=== PATIENT | female | born 1955 | race Asian ===

== ENCOUNTER 2019-10-09 09:18 | Outpatient (CLI) | payer MEDICARE ==
[2019-10-09 11:25] LABS: BASOPHILS # (AUTO) 0.1 10^3/uL (0.0-0.1); BASOPHILS % (AUTO) 1.1 %; EOSINOPHILS # (AUTO) 0.1 10^3/uL (0.0-0.7); HGB - HEMOGLOBIN 12.6 g/dL (12.0-16.0); LYMPHOCYTES # (AUTO) 1.6 10^3/uL (1.5-3.5); LYMPHOCYTES % (AUTO) 34.9 %; MEAN CORPUSCULAR HEMOGLOBIN 31.1 pg (27.0-31.0); MEAN CORPUSCULAR HGB CONC 31.5 g/dL (32.0-36.0); MEAN CORPUSCULAR VOLUME 98.8 fL (81.0-99.0); MEAN PLATELET VOLUME 9.9 fL (7.9-10.8); MONOCYTES # (AUTO) 0.4 10^3/uL (0.0-1.0); MONOCYTES % (AUTO) 7.4 %; NEUTROPHILS # (AUTO) 2.5 10^3/uL (1.5-6.6); NEUTROPHILS % (AUTO) 53.4 %; PLT - PLATELET COUNT 307 10^3/uL (130-450); RED BLOOD COUNT 4.05 10^6/uL (4.20-5.40); RED CELL DISTRIBUTION WIDTH 12.7 % (12.0-15.0); WHITE BLOOD COUNT 4.7 x10^3/uL (4.8-10.8)
[2019-10-09 11:59] LABS: ALBUMIN 4.8 g/dL (3.2-5.5); ALBUMIN/GLOBULIN RATIO 1.5 (1.0-2.2); ALKALINE PHOSPHATASE 43 IU/L (42-121); ALT ALANINE AMINOTRANSFERASE 49 IU/L (10-60); AST ASPARTATE AMINOTRANSFERASE 33 IU/L (10-42); BILIRUBIN,TOTAL 0.5 mg/dL (0.2-1.0); BUN - BLOOD UREA NITROGEN 19 mg/dL (6-20); CALCIUM 9.6 mg/dL (8.5-10.3); CARBON DIOXIDE - CO2 29 mmol/L (21-32); CHLORIDE 101 mmol/L (101-111); CHOL/HDL RATIO 3.2 (<4.4); CHOLESTEROL 249 mg/dL; CREATININE 0.8 mg/dL (0.4-1.0); GLUCOSE 101 mg/dL (70-100); HDL CHOLESTEROL 79 mg/dL; LDL CHOLESTEROL,CALCULATED 133 mg/dL; LDL/HDL RATIO 1.7 (<4.4); SODIUM 140 mmol/L (135-145); VLDL CHOLESTEROL 37 mg/dL
[2019-10-09 12:10] LABS: FREE T3 2.49 pg/mL (2.5-3.9)
[2019-10-09 12:11] LABS: FREE T4 (FREE THYROXINE) 1.29 ng/dL (0.58-1.64); THYROID STIMULATING HORMONE 6.9 uIU/mL (0.34-5.60)
[2019-10-09 12:16] LABS: HB2 TOTAL 13.4 g/dL; HEMOGLOBIN A1C 0.59 g/dL; HEMOGLOBIN A1C % 6.2 % (4.6-6.2)
== END 2019-10-09 23:59 | disposition home or self-care (01) ==
LOC: LAB.WCP 09:18
PROVIDERS: ATTEND Family Medicine
DX: E11.51 Type 2 diabetes mellitus with diabetic peripheral angiopathy without gangrene (principal); E78.5 Hyperlipidemia, unspecified; E03.9 Hypothyroidism, unspecified; I10 Essential (primary) hypertension
CPT/HCPCS: 36415; 80053; 80061; 83036; 83721; 84439; 84443; 84481; 85025

== ENCOUNTER 2020-01-07 08:00 | Outpatient (CLI) | payer MEDICARE ==
[2020-01-07 18:40] LABS: THYROID STIMULATING HORMONE 6.84 uIU/mL (0.34-5.60)
[2020-01-07 18:42] LABS: FREE T4 (FREE THYROXINE) 1.08 ng/dL (0.58-1.64)
[2020-01-07 18:43] LABS: FREE T3 2.8 pg/mL (2.5-3.9)
== END 2020-01-07 23:59 | disposition home or self-care (01) ==
LOC: LAB.WCP 08:00
PROVIDERS: ATTEND Family Medicine
DX: E03.9 Hypothyroidism, unspecified (principal)
CPT/HCPCS: 36415; 84439; 84443; 84481

== ENCOUNTER 2020-04-08 08:00 | Outpatient (CLI) | payer MEDICARE ==
[2020-04-08 18:31] LABS: CALCIUM 9.1 mg/dL (8.5-10.3); CREATININE 0.8 mg/dL (0.4-1.0)
[2020-04-08 20:12] LABS: HEMOGLOBIN A1c% 6.3 % (4.27-6.07)
== END 2020-04-08 23:59 | disposition home or self-care (01) ==
LOC: LAB.WCP 08:00
PROVIDERS: ATTEND Family Medicine
DX: I10 Essential (primary) hypertension (principal); E11.59 Type 2 diabetes mellitus with other circulatory complications
CPT/HCPCS: 36415; 80048; 83036

== ENCOUNTER 2020-09-28 08:00 | Outpatient (CLI) | payer MEDICARE ==
[2020-09-28 19:17] LABS: CHOL/HDL RATIO 3.8 (<4.4); CHOLESTEROL 270 mg/dL; HDL CHOLESTEROL 71 mg/dL; LDL CHOLESTEROL,CALCULATED 162 mg/dL; LDL/HDL RATIO 2.3 (<4.4); TRIGLYCERIDES 185 mg/dL; VLDL CHOLESTEROL 37 mg/dL
[2020-09-28 19:23] LABS: FREE T3 3.37 pg/mL (2.5-3.9); THYROID STIMULATING HORMONE 6.39 uIU/mL (0.34-5.60)
[2020-09-28 19:24] LABS: CREATININE,URINE 169.3 mg/dL; MICROALBUM/CREATININE RATIO,UR 3.5 ug/mg (<30.0); MICROALBUMIN,URINE 0.6 mg/dL (0-300.0)
[2020-09-28 19:27] LABS: FREE T4 (FREE THYROXINE) 1.11 ng/dL (0.58-1.64)
[2020-09-28 20:36] LABS: ESTIMATED AVERAGE GLUCOSE 137 mg/dL (70-100); HEMOGLOBIN A1c% 6.4 % (4.27-6.07)
== END 2020-09-28 23:59 | disposition home or self-care (01) ==
LOC: LAB.WCP 08:00
PROVIDERS: ATTEND Family Medicine
DX: E03.9 Hypothyroidism, unspecified (principal); M25.462 Effusion, left knee; E78.5 Hyperlipidemia, unspecified; I10 Essential (primary) hypertension; E11.59 Type 2 diabetes mellitus with other circulatory complications
CPT/HCPCS: 36415; 80061; 82043; 82570; 83036; 83721; 84439; 84443; 84481

== ENCOUNTER 2021-04-08 09:39 | Outpatient (CLI) | payer MEDICARE, OTHER ==
[2021-04-08 13:24] LABS: CREATININE,URINE 188.3 mg/dL; MICROALBUM/CREATININE RATIO,UR 10.1 ug/mg (<30.0); MICROALBUMIN,URINE 1.9 mg/dL (0-300.0)
[2021-04-08 14:41] LABS: BASOPHILS % (AUTO) 0.9 %; EOSINOPHILS # (AUTO) 0.2 10^3/uL (0.0-0.7); EOSINOPHILS % (AUTO) 3.4 %; HCT - HEMATOCRIT 40.7 % (37.0-47.0); HGB - HEMOGLOBIN 13.3 g/dL (12.0-16.0); LYMPHOCYTES # (AUTO) 1.7 10^3/uL (1.5-3.5); LYMPHOCYTES % (AUTO) 37.2 %; MEAN CORPUSCULAR HGB CONC 32.7 g/dL (32.0-36.0); MEAN CORPUSCULAR VOLUME 98.1 fL (81.0-99.0); MONOCYTES # (AUTO) 0.4 10^3/uL (0.0-1.0); MONOCYTES % (AUTO) 8.8 %; NEUTROPHILS # (AUTO) 2.3 10^3/uL (1.5-6.6); NEUTROPHILS % (AUTO) 49.5 %; PLT - PLATELET COUNT 307 10^3/uL (130-450); RED BLOOD COUNT 4.15 10^6/uL (4.20-5.40); RED CELL DISTRIBUTION WIDTH 13.1 % (12.0-15.0); WHITE BLOOD COUNT 4.7 x10^3/uL (4.8-10.8)
[2021-04-08 15:01] LABS: FREE T4 (FREE THYROXINE) 1.04 ng/dL (0.58-1.64); THYROID STIMULATING HORMONE 6.5 uIU/mL (0.34-5.60)
[2021-04-08 15:02] LABS: FREE T3 2.74 pg/mL (2.5-3.9)
[2021-04-08 15:11] LABS: ALBUMIN 4.2 g/dL (3.2-5.5); ALBUMIN/GLOBULIN RATIO 1.2 (1.0-2.2); ALKALINE PHOSPHATASE 34 IU/L (42-121); ALT ALANINE AMINOTRANSFERASE 28 IU/L (10-60); AST ASPARTATE AMINOTRANSFERASE 23 IU/L (10-42); BILIRUBIN,TOTAL 0.7 mg/dL (0.2-1.0); BUN - BLOOD UREA NITROGEN 18 mg/dL (6-20); CARBON DIOXIDE - CO2 29 mmol/L (21-32); CHLORIDE 100 mmol/L (101-111); CHOL/HDL RATIO 5.1 (<4.4); CHOLESTEROL 386 mg/dL; CREATININE 0.9 mg/dL (0.4-1.0); GFR - MDRD 63 (>89); GLUCOSE 95 mg/dL (70-100); HDL CHOLESTEROL 76 mg/dL; LDL CHOLESTEROL,CALCULATED 273 mg/dL; LDL/HDL RATIO 3.6 (<4.4); POTASSIUM 4.1 mmol/L (3.5-5.0); SODIUM 139 mmol/L (135-145); TOTAL PROTEIN 7.8 g/dL (6.7-8.2); TRIGLYCERIDES 186 mg/dL; VLDL CHOLESTEROL 37 mg/dL
[2021-04-08 17:22] LABS: ESTIMATED AVERAGE GLUCOSE 137 mg/dL (70-100); HEMOGLOBIN A1c% 6.4 % (4.27-6.07)
== END 2021-04-08 09:40 | disposition home or self-care (01) ==
LOC: LAB.N 09:39
PROVIDERS: ATTEND Family Medicine
DX: M60.9 Myositis, unspecified (principal); I10 Essential (primary) hypertension; E03.9 Hypothyroidism, unspecified; E11.59 Type 2 diabetes mellitus with other circulatory complications
CPT/HCPCS: 36415; 80053; 80061; 82043; 82570; 83036; 83721; 84439; 84443; 84481; 85025

== ENCOUNTER 2021-09-09 08:55 | Outpatient (CLI) | payer MEDICARE, OTHER ==
[2021-09-09 12:32] LABS: CALCIUM 9.5 mg/dL (8.5-10.3); CREATININE 0.9 mg/dL (0.4-1.0); POTASSIUM 4.9 mmol/L (3.5-5.0)
[2021-09-09 12:35] LABS: CREATININE,URINE 124.1 mg/dL; MICROALBUM/CREATININE RATIO,UR 8.9 ug/mg (<30.0); MICROALBUMIN,URINE 1.1 mg/dL (0-300.0)
[2021-09-09 12:49] LABS: THYROID STIMULATING HORMONE 1.55 uIU/mL (0.34-5.60)
[2021-09-09 12:52] LABS: FREE T3 3.66 pg/mL (2.5-3.9)
[2021-09-09 12:53] LABS: FREE T4 (FREE THYROXINE) 1.51 ng/dL (0.58-1.64)
[2021-09-09 13:48] LABS: ESTIMATED AVERAGE GLUCOSE 134 mg/dL (70-100); HEMOGLOBIN A1c% 6.3 % (4.27-6.07)
== END 2021-09-09 08:56 | disposition home or self-care (01) ==
LOC: LAB.N 08:55
PROVIDERS: ATTEND Family Medicine
DX: I10 Essential (primary) hypertension (principal); E03.9 Hypothyroidism, unspecified; E78.5 Hyperlipidemia, unspecified; E11.59 Type 2 diabetes mellitus with other circulatory complications
CPT/HCPCS: 36415; 80048; 82043; 82570; 83036; 84439; 84443; 84481

== ENCOUNTER 2022-05-12 07:39 | Outpatient (CLI) | payer MEDICARE, OTHER ==
[2022-05-12 12:18] LABS: BASOPHILS % (AUTO) 0.7 %; EOSINOPHILS # (AUTO) 0.2 10^3/uL (0.0-0.7); HCT - HEMATOCRIT 43.2 % (37.0-47.0); HGB - HEMOGLOBIN 13.3 g/dL (12.0-16.0); LYMPHOCYTES # (AUTO) 1.9 10^3/uL (1.5-3.5); LYMPHOCYTES % (AUTO) 34.1 %; MEAN CORPUSCULAR HEMOGLOBIN 29.8 pg (27.0-31.0); MEAN CORPUSCULAR HGB CONC 30.8 g/dL (32.0-36.0); MEAN CORPUSCULAR VOLUME 96.6 fL (81.0-99.0); MEAN PLATELET VOLUME 10.3 fL (7.9-10.8); MONOCYTES # (AUTO) 0.5 10^3/uL (0.0-1.0); MONOCYTES % (AUTO) 8.5 %; NEUTROPHILS # (AUTO) 2.9 10^3/uL (1.5-6.6); NEUTROPHILS % (AUTO) 52.3 %; PLT - PLATELET COUNT 331 10^3/uL (130-450); RED BLOOD COUNT 4.47 10^6/uL (4.20-5.40); RED CELL DISTRIBUTION WIDTH 12.6 % (12.0-15.0); WHITE BLOOD COUNT 5.5 x10^3/uL (4.8-10.8)
[2022-05-12 13:31] LABS: THYROID STIMULATING HORMONE 2.11 uIU/mL (0.34-5.60)
[2022-05-12 13:36] LABS: ALBUMIN 4.2 g/dL (3.2-5.5); ALBUMIN/GLOBULIN RATIO 1.2 (1.0-2.2); ALKALINE PHOSPHATASE 47 IU/L (42-121); ALT ALANINE AMINOTRANSFERASE 34 IU/L (10-60); AST ASPARTATE AMINOTRANSFERASE 25 IU/L (10-42); BILIRUBIN,TOTAL 0.7 mg/dL (0.2-1.0); BUN - BLOOD UREA NITROGEN 17 mg/dL (6-20); CALCIUM 8.9 mg/dL (8.5-10.3); CARBON DIOXIDE - CO2 29 mmol/L (21-32); CHLORIDE 105 mmol/L (101-111); CHOL/HDL RATIO 2.7 (<4.4); CHOLESTEROL 182 mg/dL; CREATININE 0.8 mg/dL (0.4-1.0); GFR - MDRD 72 (>89); GLUCOSE 87 mg/dL (70-100); HDL CHOLESTEROL 68 mg/dL; LDL CHOLESTEROL,CALCULATED 84 mg/dL; LDL/HDL RATIO 1.2 (<4.4); POTASSIUM 3.7 mmol/L (3.5-5.0); SODIUM 140 mmol/L (135-145); TOTAL PROTEIN 7.6 g/dL (6.7-8.2); TRIGLYCERIDES 150 mg/dL; VLDL CHOLESTEROL 30 mg/dL
[2022-05-12 13:46] LABS: ESTIMATED AVERAGE GLUCOSE 137 mg/dL (70-100); HEMOGLOBIN A1c% 6.4 % (4.27-6.07)
== END 2022-05-12 07:40 | disposition home or self-care (01) ==
LOC: LAB.N 07:39
PROVIDERS: ATTEND Family Medicine
DX: I10 Essential (primary) hypertension (principal); E03.9 Hypothyroidism, unspecified; E78.5 Hyperlipidemia, unspecified; E11.59 Type 2 diabetes mellitus with other circulatory complications
CPT/HCPCS: 36415; 80053; 80061; 83036; 83721; 84443; 85025

== ENCOUNTER 2022-12-20 09:21 | Outpatient (CLI) | payer MEDICARE, OTHER ==
[2022-12-20 12:00] LABS: CALCIUM 9.6 mg/dL (8.5-10.3); CREATININE 0.8 mg/dL (0.6-1.3); ESTIMATED AVERAGE GLUCOSE 140 mg/dL (70-100); HEMOGLOBIN A1c% 6.5 % (4.27-6.07); POTASSIUM 4.3 mmol/L (3.5-4.5)
[2022-12-20 12:11] LABS: CREATININE,URINE 202.7 mg/dL; MICROALBUM/CREATININE RATIO,UR 19.7 ug/mg (<30.0)
== END 2022-12-20 09:22 | disposition home or self-care (01) ==
LOC: LAB.N 09:21
PROVIDERS: ATTEND Family Medicine
DX: E11.59 Type 2 diabetes mellitus with other circulatory complications (principal)
CPT/HCPCS: 36415; 80048; 82043; 82570; 83036

== ENCOUNTER 2023-03-21 10:29 | Outpatient (CLI) | payer MEDICARE, OTHER ==
[2023-03-21 12:42] LABS: BASOPHILS # (AUTO) 0.1 10^3/uL (0.0-0.1); BASOPHILS % (AUTO) 1.2 %; EOSINOPHILS # (AUTO) 0.2 10^3/uL (0.0-0.7); EOSINOPHILS % (AUTO) 3.9 %; HCT - HEMATOCRIT 41.4 % (37.0-47.0); HGB - HEMOGLOBIN 13.3 g/dL (12.0-16.0); LYMPHOCYTES # (AUTO) 1.8 10^3/uL (1.5-3.5); LYMPHOCYTES % (AUTO) 44.1 %; MEAN CORPUSCULAR HEMOGLOBIN 30.7 pg (27.0-31.0); MEAN CORPUSCULAR HGB CONC 32.1 g/dL (32.0-36.0); MEAN CORPUSCULAR VOLUME 95.6 fL (81.0-99.0); MEAN PLATELET VOLUME 10.5 fL (7.9-10.8); MONOCYTES # (AUTO) 0.4 10^3/uL (0.0-1.0); MONOCYTES % (AUTO) 10.4 %; NEUTROPHILS # (AUTO) 1.7 10^3/uL (1.5-6.6); NEUTROPHILS % (AUTO) 40.4 %; PLT - PLATELET COUNT 276 10^3/uL (130-450); RED BLOOD COUNT 4.33 10^6/uL (4.20-5.40); RED CELL DISTRIBUTION WIDTH 12.4 % (12.0-15.0); WHITE BLOOD COUNT 4.2 x10^3/uL (4.8-10.8)
[2023-03-21 12:46] LABS: ALBUMIN 4.5 g/dL (3.2-5.5); ALBUMIN/GLOBULIN RATIO 1.4 (1.0-2.2); ALKALINE PHOSPHATASE 64 IU/L (42-121); ALT ALANINE AMINOTRANSFERASE 36 IU/L (10-60); AST ASPARTATE AMINOTRANSFERASE 23 IU/L (10-42); BILIRUBIN,TOTAL 0.7 mg/dL (0.2-1.0); BUN - BLOOD UREA NITROGEN 20 mg/dL (6-20); CALCIUM 9.3 mg/dL (8.5-10.3); CARBON DIOXIDE - CO2 30 mmol/L (21-32); CHLORIDE 104 mmol/L (101-111); CHOL/HDL RATIO 3.2 (<4.4); CHOLESTEROL 209 mg/dL; CREATININE 0.9 mg/dL (0.6-1.3); GFR - MDRD 63 (>89); GLUCOSE 101 mg/dL (74-104); HDL CHOLESTEROL 66 mg/dL; LDL CHOLESTEROL,CALCULATED 107 mg/dL; LDL/HDL RATIO 1.6 (<4.4); SODIUM 141 mmol/L (135-145); TOTAL PROTEIN 7.7 g/dL (6.4-8.9); TRIGLYCERIDES 181 mg/dL (48-352); VLDL CHOLESTEROL 36 mg/dL
[2023-03-21 13:17] LABS: THYROID STIMULATING HORMONE 0.46 uIU/mL (0.34-5.60)
[2023-03-21 14:11] LABS: ESTIMATED AVERAGE GLUCOSE 128 mg/dL (70-100); HEMOGLOBIN A1c% 6.1 % (4.27-6.07)
== END 2023-03-21 10:30 | disposition home or self-care (01) ==
LOC: LAB.N 10:29
PROVIDERS: ATTEND Family Medicine
DX: I10 Essential (primary) hypertension (principal); E03.9 Hypothyroidism, unspecified; E78.5 Hyperlipidemia, unspecified; E11.59 Type 2 diabetes mellitus with other circulatory complications
CPT/HCPCS: 36415; 80053; 80061; 83036; 83721; 84439; 84443; 84481; 85025

== ENCOUNTER 2023-08-10 07:35 | Outpatient (CLI) | payer MEDICARE, OTHER ==
[2023-08-10 13:51] LABS: CREATININE,URINE 218.9 mg/dL; MICROALBUM/CREATININE RATIO,UR 17.4 ug/mg (<30.0); MICROALBUMIN,URINE 3.8 mg/dL
[2023-08-10 13:59] LABS: CALCIUM 9.6 mg/dL (8.5-10.3); CREATININE 0.9 mg/dL (0.6-1.3); POTASSIUM 4.4 mmol/L (3.5-4.5)
[2023-08-10 14:23] LABS: ESTIMATED AVERAGE GLUCOSE 131 mg/dL (70-100); HEMOGLOBIN A1c% 6.2 % (4.27-6.07)
== END 2023-08-10 07:36 | disposition home or self-care (01) ==
LOC: LAB.N 07:35
PROVIDERS: ATTEND Family Medicine
DX: I10 Essential (primary) hypertension (principal); E11.59 Type 2 diabetes mellitus with other circulatory complications
CPT/HCPCS: 36415; 80048; 82043; 82570; 83036